=== PATIENT | female | born 1935 | race Caucasian/White ===

== ENCOUNTER 2021-11-05 16:58 | Observation (INO) | payer MEDICARE ==
[2021-11-05] VITALS (7 sets, daily range): BP systolic 132–170; BP diastolic 67–81
[~2021-11-05] VITALS: Ht 160 cm; Wt 63.2 kg
--- NOTE | 2021-11-05 17:00 | NUR ---
PATIENT TO ROOM AND STROKE ALERT CALLED
[2021-11-05 17:22] LABS: HEMATOCRIT 35.2 % (37.0-47.0); HEMOGLOBIN 10.8 g/dl (12.0-16.0); MEAN CELL VOLUME 89.3 fL CALC (80.0-100.0); MEAN CORPUSCULAR HGB 27.4 pG CALC (26.0-32.0); MEAN CORPUSCULAR HGB CONC 30.7 g/dL CAL (32.0-36.0); NEUT# 2.8 thou/uL (2.00-7.15); RED BLOOD COUNT 3.94 mill/uL (4.20-5.60); RED CELL DISTRI WIDTH 13.7 % (11.5-15.5)
--- NOTE | 2021-11-05 17:40 | NUR ---
PT RETURNED TO TOOM FROM CT NAD SNOTED. PATIENT HOOKED UP IN ROOM WITH MD AT BEDSIDE. DAUGHTER AT BED SIDE.
[2021-11-05 17:46] LABS: PROTHROMBIN TIME 10.3 SECONDS (9.0-12.5)
[2021-11-05 17:49] LABS: ALBUMIN 3.6 g/dL (3.2-5.0); ALKALINE PHOSPHATASE 109 u/l (38-126); ANION GAP 9 (6-22 (CALC)); BILIRUBIN, TOTAL 0.4 mg/dL (0.0-1.4); BUN 10 mg/dL (8-23); BUN/CREATININE RATIO 19 (12-20 (CALC)); CARBON DIOXIDE 27 mmol/l (22-30); CHLORIDE 98 mmol/l (95-108); CREATININE 0.5 mg/dL (0.5-1.0); GFR FOR AFR.AMER. > 60 ML/MIN (>=60 (CALC)); GFR OTHER RACES > 60 ML/MIN (>=60 (CALC)); POTASSIUM 4.3 mmol/l (3.5-5.1); SGOT/AST 16 u/l (9-36); SODIUM 129 mmol/l (137-146); TOTAL PROTEIN 6.6 g/dL (6.3-8.2)
[2021-11-05] MEDS ORDERED: METFORMIN500 M2 PO (17:58)
--- NOTE | 2021-11-05 18:00 | NUR ---
Reassessment of patient completed. No distress noted.
[2021-11-05] MEDS ORDERED: RYTARY 36.25-141 CAP PO ×2 (18:02→19:12)
--- NOTE | 2021-11-05 19:00 | NUR ---
Reassessment of patient completed. No distress noted.
[2021-11-05 19:17] LABS: URINE BILIRUBIN - DIPSTICK NEGATIVE (NEGATIVE); URINE BLOOD DIPSTICK NEGATIVE (NEGATIVE); URINE COLOR YELLOW; URINE GLUCOSE - DIPSTICK NEGATIVE (NEGATIVE); URINE KETONE NEGATIVE (NEGATIVE); URINE LEUK ESTERASE NEGATIVE (NEGATIVE); URINE PROTEIN - DIPSTICK NEGATIVE (NEG-TRACE); URINE UROBILINOGEN - DIPSTICK 0.2 E.U./dL (0.2)
[2021-11-05 19:22] LABS: URINE NITRITE - DIPSTICK POSITIVE (Negative)
[2021-11-05 19:30] LABS: URINE BACTERIA MANY hpf; URINE SQUAMOUS EPITHELIAL CELL MODERATE EPI/hpf (0-FEW)
--- NOTE | 2021-11-05 19:45 | NUR ---
PATIENT TRASFERED TO ROOM 280 MED SURG. REPORT GIVEN TO ZAIRA DEL RIO. PATIENT TRASFERED TO BED WITH SUPERVISION. NAD NOTED.
--- NOTE | 2021-11-05 20:30 | NUR ---
PATIENT ADMITTED FROM ER VIA STRETCHER WITH ER STAFF AND DAUGHTER IN ATTENDANCE. PATIENT IS ABLE TO TRANSFER TO BED WITH ASSIST AND USE OF HER WALKER. PATIENT ADMITTED FOR TIA. ALERT AND ORIENTEDX3. PATIENT SPEECH IS CLEAR AT THIS TIME. STATES THAT SHE DID HAVE SOME WORD FINDING DIFFICULTY EARLIER TODAY WELL SOME GARBLED SPEECH WHICH HAS RESOLVED. ROSALIE OF EXTREMITIES IS WNL. NO FACIAL DROOP NOTED. ABLE TO FOLLOW COMMANDS-HAND GRASPS ARE EQUAL AND STRONG. TELE MONITOR IN PLACE AND READING SR-60'S. IV SITE TO RAC INTACT AND HEALTHY WITH GOOD BLOOD RETURN. LUNGS ARE CLEAR. ABD IS SOFT WITH ACTIVE BS. LAST BM WAS YESTERDAY. BLE SWELLING NOTED-2+-STATES THAT THEY ARE ALWAYS LIKE THAT. ENCOURAGED ELEVATION.ASSISTED TO BR TO VOID-SLOW STEADY GAIT WITH ASSIST. VOIDING CLEAR YELLOW URINE. PATIENT DOES WEAR PAD FOR LEAKAGE. ASSISTED BACK TO BED. INSTRUCTED PATIENT ON USE OF NURSE CALL LIGHT AND TV REMOTE. SAFETY PRECAUTIONS REINFORCED. SCD'S APPLIED AND FEET ELEVATED ON PILLOWS. CALL LIGHT IN REACH. WILL CONT TO MONITOR.
[2021-11-06] VITALS: BP 132/67
--- NOTE | 2021-11-06 00:30 | NUR ---
RESTING IN BED-EYES ARE CLOSED. RESPS ARE EVEN AND UNLABORED. TELE MONITOR IN PLACE-SR-60'S. SALINE LOCK TO RAC INTACT. CALL LIGHT IN REACH. WILL CONT TO MONITOR.
[2021-11-06 04:00] VITALS: BP 138/66
--- NOTE | 2021-11-06 04:27 | NUR ---
PATIENT RESTING IN BED AT THIS TIME WITH EYES CLOSED. RESPS ARE EVEN AND UNLABORED. TELE MONITOR IN PLACE-SR-65. SALINE LOCK TO RAC INTACT. CALL LIGHT IN REACH. WILL CONT TO MONITOR.
[2021-11-06 04:38] VITALS: BP 138/66
[2021-11-06 05:49] LABS: ANION GAP 6 (6-22 (CALC)); BUN 10 mg/dL (8-23); BUN/CREATININE RATIO 21 (12-20 (CALC)); CARBON DIOXIDE 28 mmol/l (22-30); CHLORIDE 101 mmol/l (95-108); CREATININE 0.5 mg/dL (0.5-1.0); GFR FOR AFR.AMER. > 60 ML/MIN (>=60 (CALC)); GFR OTHER RACES > 60 ML/MIN (>=60 (CALC)); MAGNESIUM 1.5 mg/dL (1.6-2.3); SODIUM 130 mmol/l (137-146)
[2021-11-06 06:57] VITALS: BP 124/60
--- NOTE | 2021-11-06 08:15 | NUR ---
PT SITTING IN BED EATING BREAKFAST. A&O X3. NO DISTRESS NOTED. PT REPORTS TO FEELING WELL THIS MORNING. CLEAR SPEACH NOTED. NIH 0. CLEAR BREATH SOUNDS UPON AUSCULTATION. ACTIVE BOWEL SOUNDS X4. REPORTS URINATION FREQUENCY/URGENCY AT TIMES. BILATERAL LEG EDEMA; SCDS IN PLACE. PT REPORTS EDEMA HAS IMPROVED AFTER APPLICATION OF SCDS. IV HEALTHY AND PATENT. TELEMETRY MONITORING IN PLACE. ASSESSMENT COMPLETED. DISCUSSED POC. CALL LIGHT WITHIN REACH.
[2021-11-06 10:55] VITALS: BP 122/67
--- NOTE | 2021-11-06 11:29 | NUR ---
DR PEARCE AT BEDSIDE FOR ASSESSMENT AND DISCUSSION OF POC
[2021-11-06] MEDS ORDERED: ASPIRIN ADULT L81 M2 PO (12:09)
[2021-11-06] MEDS ORDERED: KEFLEX500 MG PO (12:11)
--- NOTE | 2021-11-06 12:56 | NUR ---
PT UPDATED ON D/C PLANNING ALONG WITH NEUROLOGY RECOMMENDATIONS. BOTH VERBALIZED UNDERSTANDING.
--- NOTE | 2021-11-06 14:50 | NUR ---
Discharge instructions given. Patient verbalizes understanding of same. Discharged in stable condition via Wheelchair to Home with staff. All belongings sent with pt.
== END 2021-11-06 14:50 | disposition home health service (06) ==
LOC: ED 16:58 → ED-I 17:46 → ED 18:11 → MS2 18:12
PROVIDERS: Family Medicine; ADMIT Internal Medicine; ATTEND Internal Medicine
DX: G45.9 Transient cerebral ischemic attack, unspecified (principal); N39.0 Urinary tract infection, site not specified; G20 Parkinson's disease; E11.9 Type 2 diabetes mellitus without complications; B96.20 Unspecified Escherichia coli [E. coli] as the cause of diseases classified elsewhere; Z79.84 Long term (current) use of oral hypoglycemic drugs; Z20.822 Contact with and (suspected) exposure to COVID-19
CPT/HCPCS: J3475; Q3014; Q9967

== ENCOUNTER 2022-06-27 09:31 | Observation (INO) | payer MEDICARE ==
[~2022-06-27] VITALS: Ht 160 cm; Wt 64.6 kg
[2022-06-27] VITALS (9 sets, daily range): BP systolic 107–159; BP diastolic 52–79
[~2022-06-27 09:31] MED LIST: ASPIRIN ADULT L81 M2 PO; KEFLEX500 MG PO; METFORMIN500 M2 PO; RYTARY 36.25-141 CAP PO
[2022-06-27 10:31] LABS: ALBUMIN 4.3 g/dL (3.2-5.0); ALKALINE PHOSPHATASE 99 u/l (38-126); ANION GAP 14 (6-22 (CALC)); BUN 17 mg/dL (8-23); BUN/CREATININE RATIO 41 (12-20 (CALC)); CARBON DIOXIDE 25 mmol/l (22-30); CHLORIDE 94 mmol/l (95-108); CREATININE 0.4 mg/dL (0.5-1.0); GFR FOR AFR.AMER. > 60 ML/MIN (>=60 (CALC)); GFR OTHER RACES > 60 ML/MIN (>=60 (CALC)); POTASSIUM 4.5 mmol/l (3.5-5.1); SODIUM 129 mmol/l (137-146); TOTAL PROTEIN 6.9 g/dL (6.3-8.2)
[2022-06-27 10:35] LABS: BASO% 0.3 % (0-3); HEMATOCRIT 38.8 % (37.0-47.0); HEMOGLOBIN 12.2 g/dl (12.0-16.0); IMMATURE GRANULOCYTES 0.7 % (0.0-5.0); LYMPH% 12.5 % (15-41); MEAN CELL VOLUME 87.2 fL CALC (80.0-100.0); MEAN CORPUSCULAR HGB 27.4 pG CALC (26.0-32.0); MEAN CORPUSCULAR HGB CONC 31.4 g/dL CAL (32.0-36.0); MONO% 10.6 % (2-13); NEUT# 5.14 thou/uL (2.00-7.15); NEUT% 74.9 % (42-76); RED BLOOD COUNT 4.45 mill/uL (4.20-5.60); RED CELL DISTRI WIDTH 14.1 % (11.5-15.5)
[2022-06-27 10:35] LABS: URINE BILIRUBIN - DIPSTICK NEGATIVE (NEGATIVE); URINE BLOOD DIPSTICK NEGATIVE (NEGATIVE); URINE COLOR YELLOW; URINE GLUCOSE - DIPSTICK NEGATIVE (NEGATIVE); URINE KETONE NEGATIVE (NEGATIVE); URINE LEUK ESTERASE NEGATIVE (NEGATIVE); URINE PH 6.5 (4.5-8.0); URINE PROTEIN - DIPSTICK NEGATIVE (NEG-TRACE); URINE UROBILINOGEN - DIPSTICK 0.2 E.U./dL (0.2)
[2022-06-27 10:37] LABS: URINE NITRITE - DIPSTICK POSITIVE (Negative)
[2022-06-27 10:39] LABS: URINE BACTERIA MANY hpf; URINE EPITHELIAL CELLS FEW EPI/hpf (0-FEW)
[2022-06-27 10:47] LABS: SGOT/AST 30 u/l (9-36)
[2022-06-27] MEDS ORDERED: METOPROL TAR25 M1 PO (12:22)
[2022-06-27] MEDS ORDERED: RYTARY (13:22)
[2022-06-27] MEDS ORDERED: RYTARY 36.25-141 CAP (13:25)
[2022-06-28 04:01] VITALS: BP 117/43
[2022-06-28 06:22] LABS: ALBUMIN 3.5 g/dL (3.2-5.0); ALKALINE PHOSPHATASE 76 u/l (38-126); ANION GAP 10 (6-22 (CALC)); BILIRUBIN, TOTAL 0.8 mg/dL (0.02-1.3); BUN 13 mg/dL (8-23); BUN/CREATININE RATIO 32 (12-20 (CALC)); CARBON DIOXIDE 26 mmol/l (22-30); CHLORIDE 96 mmol/l (95-108); CREATININE 0.4 mg/dL (0.5-1.0); GFR FOR AFR.AMER. > 60 ML/MIN (>=60 (CALC)); GFR OTHER RACES > 60 ML/MIN (>=60 (CALC)); POTASSIUM 4.3 mmol/l (3.5-5.1); SGOT/AST 25 u/l (9-36); SODIUM 128 mmol/l (137-146)
[2022-06-28 06:35] VITALS: BP 117/55
[2022-06-28 08:40] VITALS: BP 117/54
[2022-06-28 18:18] VITALS: BP 133/52
[2022-06-29] VITALS (7 sets, daily range): BP systolic 119–146; BP diastolic 56–68
[2022-06-29 06:25] LABS: HEMATOCRIT 36.5 % (37.0-47.0); HEMOGLOBIN 11.8 g/dl (12.0-16.0); MEAN CELL VOLUME 85.5 fL CALC (80.0-100.0); MEAN CORPUSCULAR HGB 27.6 pG CALC (26.0-32.0); MEAN CORPUSCULAR HGB CONC 32.3 g/dL CAL (32.0-36.0); RED BLOOD COUNT 4.27 mill/uL (4.20-5.60); RED CELL DISTRI WIDTH 14.2 % (11.5-15.5)
[2022-06-29 06:35] LABS: ALBUMIN 3.7 g/dL (3.2-5.0); ALKALINE PHOSPHATASE 87 u/l (38-126); ANION GAP 9 (6-22 (CALC)); BILIRUBIN, TOTAL 0.6 mg/dL (0.02-1.3); BUN 10 mg/dL (8-23); BUN/CREATININE RATIO 28 (12-20 (CALC)); CARBON DIOXIDE 28 mmol/l (22-30); CHLORIDE 95 mmol/l (95-108); CREATININE 0.4 mg/dL (0.5-1.0); GFR FOR AFR.AMER. > 60 ML/MIN (>=60 (CALC)); GFR OTHER RACES > 60 ML/MIN (>=60 (CALC)); MAGNESIUM 1.5 mg/dL (1.6-2.3); POTASSIUM 4.4 mmol/l (3.5-5.1); SGOT/AST 26 u/l (9-36); SODIUM 128 mmol/l (137-146); TOTAL PROTEIN 6.4 g/dL (6.3-8.2)
[2022-06-30 03:32] VITALS: BP 129/56
[2022-06-30 05:47] LABS: BASO% 0.6 % (0-3); EOS% 3.2 % (0-8); HEMATOCRIT 36.1 % (37.0-47.0); HEMOGLOBIN 11.7 g/dl (12.0-16.0); IMMATURE GRANULOCYTES 0.8 % (0.0-5.0); LYMPH% 13.6 % (15-41); MEAN CELL VOLUME 85.3 fL CALC (80.0-100.0); MEAN CORPUSCULAR HGB 27.7 pG CALC (26.0-32.0); MEAN CORPUSCULAR HGB CONC 32.4 g/dL CAL (32.0-36.0); MONO% 9.3 % (2-13); NEUT# 3.57 thou/uL (2.00-7.15); NEUT% 72.5 % (42-76); RED BLOOD COUNT 4.23 mill/uL (4.20-5.60)
[2022-06-30 05:55] LABS: ALBUMIN 3.5 g/dL (3.2-5.0); ALKALINE PHOSPHATASE 98 u/l (38-126); ANION GAP 11 (6-22 (CALC)); BILIRUBIN, TOTAL 0.6 mg/dL (0.02-1.3); BUN 12 mg/dL (8-23); BUN/CREATININE RATIO 33 (12-20 (CALC)); CARBON DIOXIDE 25 mmol/l (22-30); CHLORIDE 96 mmol/l (95-108); CREATININE 0.4 mg/dL (0.5-1.0); GFR FOR AFR.AMER. > 60 ML/MIN (>=60 (CALC)); GFR OTHER RACES > 60 ML/MIN (>=60 (CALC)); MAGNESIUM 1.3 mg/dL (1.6-2.3); POTASSIUM 4.6 mmol/l (3.5-5.1); SGOT/AST 22 u/l (9-36); SODIUM 127 mmol/l (137-146)
[2022-06-30 06:04] VITALS: BP 167/76
[2022-06-30 10:13] VITALS: BP 140/67
[2022-06-30] MEDS ORDERED: CIPROFLOXACN500 MG PO (12:26)
== END 2022-06-30 15:07 ==
LOC: EDPENDDISTM → EDPENDDISDT → ED 09:31 → ED-I 10:20 → ED 12:45 → MS2 12:46
PROVIDERS: Emergency Medicine; Nurse Practitioner Family; ADMIT Internal Medicine; ATTEND Internal Medicine
DX: N39.0 Urinary tract infection, site not specified (principal); E86.0 Dehydration; E87.1 Hypo-osmolality and hyponatremia; E11.9 Type 2 diabetes mellitus without complications; G20 Parkinson's disease; B95.7 Other staphylococcus as the cause of diseases classified elsewhere; Z91.81 History of falling; Z87.440 Personal history of urinary (tract) infections; Z79.84 Long term (current) use of oral hypoglycemic drugs; Z85.820 Personal history of malignant melanoma of skin; Z74.2 Need for assistance at home and no other household member able to render care; Z20.822 Contact with and (suspected) exposure to COVID-19
CPT/HCPCS: J3475

== ENCOUNTER 2022-09-06 21:19 | Emergency (ER) | payer MEDICARE ==
[~2022-09-06] VITALS: Ht 160 cm; Wt 81.8 kg
[~2022-09-06 21:19] MED LIST changes: +CIPROFLOXACN500 MG PO; +METOPROL TAR25 M1 PO; +RYTARY; +RYTARY 36.25-141 CAP
[2022-09-06 21:26] VITALS: BP 107/55
[2022-09-06 21:30] VITALS: BP 117/60
[2022-09-06] MEDS ORDERED: FEROSUL325 MG (21:41)
[2022-09-06] MEDS ORDERED: SOD CHLORIDE1 GM OD (21:42)
[2022-09-06] MEDS ORDERED: VITAMIN B-121000 MCG PO (21:43)
[2022-09-06] MEDS ORDERED: BISACODYL10 M1 RE (21:43)
[2022-09-06 22:00] LABS: BASO% 0.9 % (0-3); EOS% 4.7 % (0-8); HEMATOCRIT 34.8 % (37.0-47.0); HEMOGLOBIN 10.9 g/dl (12.0-16.0); IMMATURE GRANULOCYTES 0.5 % (0.0-5.0); LYMPH% 20.7 % (15-41); MEAN CORPUSCULAR HGB 27.9 pG CALC (26.0-32.0); MEAN CORPUSCULAR HGB CONC 31.3 g/dL CAL (32.0-36.0); MONO% 9.5 % (2-13); NEUT# 2.74 thou/uL (2.00-7.15); NEUT% 63.7 % (42-76); RED BLOOD COUNT 3.91 mill/uL (4.20-5.60); RED CELL DISTRI WIDTH 15.1 % (11.5-15.5)
[2022-09-06 22:15] LABS: ALBUMIN 3.8 g/dL (3.2-5.0); ALKALINE PHOSPHATASE 98 u/l (38-126); ANION GAP 10 (6-22 (CALC)); BILIRUBIN, TOTAL 0.4 mg/dL (0.02-1.3); BUN 12 mg/dL (8-23); BUN/CREATININE RATIO 22 (12-20 (CALC)); CARBON DIOXIDE 27 mmol/l (22-30); CHLORIDE 97 mmol/l (95-108); CREATININE 0.5 mg/dL (0.5-1.0); GFR FOR AFR.AMER. > 60 ML/MIN (>=60 (CALC)); GFR OTHER RACES > 60 ML/MIN (>=60 (CALC)); MAGNESIUM 1.4 mg/dL (1.6-2.3); POTASSIUM 4.1 mmol/l (3.5-5.1); SGOT/AST 22 u/l (9-36); SODIUM 130 mmol/l (137-146); TOTAL PROTEIN 6.5 g/dL (6.3-8.2)
[2022-09-07 01:49] LABS: URINE BILIRUBIN - DIPSTICK NEGATIVE (NEGATIVE); URINE BLOOD DIPSTICK NEGATIVE (NEGATIVE); URINE COLOR YELLOW; URINE GLUCOSE - DIPSTICK NEGATIVE (NEGATIVE); URINE KETONE TRACE mg/dL (NEGATIVE); URINE LEUK ESTERASE NEGATIVE (NEGATIVE); URINE NITRITE - DIPSTICK NEGATIVE (Negative); URINE PROTEIN - DIPSTICK NEGATIVE (NEG-TRACE); URINE SPECIFIC GRAVITY 1.025; URINE UROBILINOGEN - DIPSTICK 0.2 E.U./dL (0.2)
[2022-09-07] MEDS ORDERED: TRAMADOL HCL50 MG PO (01:57)
[2022-09-07 02:29] VITALS: BP 107/55
== END 2022-09-07 02:20 ==
LOC: ED 21:19
PROVIDERS: Family Medicine
DX: M80.88XA Other osteoporosis with current pathological fracture, vertebra(e), initial encounter for fracture (principal); G20 Parkinson's disease; E11.9 Type 2 diabetes mellitus without complications; Z79.84 Long term (current) use of oral hypoglycemic drugs; Z91.81 History of falling

== ENCOUNTER 2023-05-04 12:45 | Observation (INO) | payer MEDICARE ==
[~2023-05-04] VITALS: Ht 160 cm; Wt 61.4 kg
[2023-05-04] VITALS (20 sets, daily range): BP systolic 104–187; BP diastolic 39–126
[~2023-05-04 12:45] MED LIST changes: +BISACODYL10 M1 RE; +CEFDINIR300 MG PO; +FEROSUL325 MG; +PLAVIX75 MG PO; -RYTARY; -RYTARY 36.25-141 CAP; +RYTARY PO; +SOD CHLORIDE1 GM PO; +TRAMADOL HCL50 MG PO; +VITAMIN B-121000 MCG PO; +VITAMIN D320 MCG PO
[2023-05-04 13:17] LABS: BASO% 0.7 % (0-3); HEMATOCRIT 35.4 % (37.0-47.0); HEMOGLOBIN 11.4 g/dl (12.0-16.0); IMMATURE GRANULOCYTES 0.7 % (0.0-5.0); LYMPH% 27.2 % (15-41); MEAN CELL VOLUME 91.5 fL CALC (80.0-100.0); MEAN CORPUSCULAR HGB 29.5 pG CALC (26.0-32.0); MEAN CORPUSCULAR HGB CONC 32.2 g/dL CAL (32.0-36.0); MONO% 8.1 % (2-13); NEUT# 2.48 thou/uL (2.00-7.15); NEUT% 61.3 % (42-76); RED BLOOD COUNT 3.87 mill/uL (4.20-5.60)
[2023-05-04 13:30] LABS: ALKALINE PHOSPHATASE 73 u/l (38-126); ANION GAP 9 (6-22 (CALC)); BILIRUBIN, TOTAL 0.6 mg/dL (0.02-1.3); BUN 12 mg/dL (8-23); BUN/CREATININE RATIO 25 (12-20 (CALC)); CARBON DIOXIDE 26 mmol/l (22-30); CHLORIDE 96 mmol/l (95-108); CREATININE 0.5 mg/dL (0.5-1.0); GFR FOR AFR.AMER. > 60 ML/MIN (>=60 (CALC)); GFR OTHER RACES > 60 ML/MIN (>=60 (CALC)); SGOT/AST 24 u/l (9-36); SODIUM 127 mmol/l (137-146); TOTAL PROTEIN 6.4 g/dL (6.3-8.2)
[2023-05-04 14:57] LABS: URINE BILIRUBIN - DIPSTICK Negative (NEGATIVE); URINE BLOOD DIPSTICK Negative (NEGATIVE); URINE COLOR Yellow; URINE GLUCOSE - DIPSTICK Negative (NEGATIVE); URINE KETONE Trace mg/dL (NEGATIVE); URINE LEUK ESTERASE Negative (NEGATIVE); URINE NITRITE - DIPSTICK Negative (Negative); URINE PROTEIN - DIPSTICK Negative (NEG-TRACE); URINE SPECIFIC GRAVITY 1.015; URINE UROBILINOGEN - DIPSTICK 0.2 E.U./dL (0.2)
[2023-05-05] VITALS (7 sets, daily range): BP systolic 99–144; BP diastolic 58–92
[2023-05-05 05:25] LABS: BASO% 0.7 % (0-3); EOS% 1.7 % (0-8); HEMATOCRIT 36.2 % (37.0-47.0); IMMATURE GRANULOCYTES 0.5 % (0.0-5.0); LYMPH% 22.6 % (15-41); MEAN CELL VOLUME 89.4 fL CALC (80.0-100.0); MEAN CORPUSCULAR HGB 29.6 pG CALC (26.0-32.0); MEAN CORPUSCULAR HGB CONC 33.1 g/dL CAL (32.0-36.0); MONO% 8.4 % (2-13); NEUT# 2.69 thou/uL (2.00-7.15); NEUT% 66.1 % (42-76); RED BLOOD COUNT 4.05 mill/uL (4.20-5.60); RED CELL DISTRI WIDTH 14.9 % (11.5-15.5)
[2023-05-05 05:31] LABS: ALBUMIN 3.8 g/dL (3.2-5.0); ALKALINE PHOSPHATASE 77 u/l (38-126); ANION GAP 6 (6-22 (CALC)); BILIRUBIN, TOTAL 0.7 mg/dL (0.02-1.3); BUN 10 mg/dL (8-23); BUN/CREATININE RATIO 21 (12-20 (CALC)); CALCULATED LDLCHOLESTEROL 97 mg/dL (62-129 (CALC)); CHLORIDE 95 mmol/l (95-108); CHOLESTEROL HDL RATIO 2.5 (<4.4 (CALC)); CREATININE 0.5 mg/dL (0.5-1.0); GFR FOR AFR.AMER. > 60 ML/MIN (>=60 (CALC)); GFR OTHER RACES > 60 ML/MIN (>=60 (CALC)); HDL CHOLESTEROL 89 mg/dL (39.0-59.0); SGOT/AST 28 u/l (9-36); SODIUM 130 mmol/l (137-146); TOTAL CHOLESTEROL 218 mg/dl (0-199); TOTAL PROTEIN 6.1 g/dL (6.3-8.2); TOTAL TRIGLYCERIDES 166 mg/dl (0-149); VLDL CHOLESTROL 33 mg/dl (0-48 (CALC))
[2023-05-05 05:32] LABS: CARBON DIOXIDE 33 mmol/l (22-30)
[2023-05-06 04:22] VITALS: BP 116/58
[2023-05-06 07:04] LABS: BASO% 0.8 % (0-3); EOS% 3.6 % (0-8); HEMATOCRIT 34.4 % (37.0-47.0); HEMOGLOBIN 11.3 g/dl (12.0-16.0); IMMATURE GRANULOCYTES 0.5 % (0.0-5.0); LYMPH% 29.6 % (15-41); MEAN CELL VOLUME 89.6 fL CALC (80.0-100.0); MEAN CORPUSCULAR HGB 29.4 pG CALC (26.0-32.0); MEAN CORPUSCULAR HGB CONC 32.8 g/dL CAL (32.0-36.0); MONO% 10.7 % (2-13); NEUT# 2.15 thou/uL (2.00-7.15); NEUT% 54.8 % (42-76); RED BLOOD COUNT 3.84 mill/uL (4.20-5.60); RED CELL DISTRI WIDTH 15.1 % (11.5-15.5)
[2023-05-06 07:10] LABS: ALBUMIN 3.5 g/dL (3.2-5.0); ALKALINE PHOSPHATASE 64 u/l (38-126); ANION GAP 6 (6-22 (CALC)); BILIRUBIN, TOTAL 0.7 mg/dL (0.02-1.3); BUN 14 mg/dL (8-23); BUN/CREATININE RATIO 30 (12-20 (CALC)); CARBON DIOXIDE 31 mmol/l (22-30); CHLORIDE 95 mmol/l (95-108); CREATININE 0.5 mg/dL (0.5-1.0); GFR FOR AFR.AMER. > 60 ML/MIN (>=60 (CALC)); GFR OTHER RACES > 60 ML/MIN (>=60 (CALC)); MAGNESIUM 1.3 mg/dL (1.6-2.3); POTASSIUM 4.1 mmol/l (3.5-5.1); SGOT/AST 25 u/l (9-36); SODIUM 128 mmol/l (137-146); TOTAL PROTEIN 5.8 g/dL (6.3-8.2)
[2023-05-06 07:22] VITALS: BP 134/63
[2023-05-06 10:31] VITALS: BP 93/39
[2023-05-06 15:05] VITALS: BP 112/45
[2023-05-06 20:53] VITALS: BP 112/72
[2023-05-07 00:22] VITALS: BP 115/67
[2023-05-07 00:41] VITALS: BP 115/67
[2023-05-07 04:26] VITALS: BP 117/53
[2023-05-07 06:23] LABS: BASO% 0.7 % (0-3); HEMATOCRIT 37.6 % (37.0-47.0); HEMOGLOBIN 12.1 g/dl (12.0-16.0); IMMATURE GRANULOCYTES 0.5 % (0.0-5.0); LYMPH% 19.5 % (15-41); MEAN CELL VOLUME 90.4 fL CALC (80.0-100.0); MEAN CORPUSCULAR HGB 29.1 pG CALC (26.0-32.0); MEAN CORPUSCULAR HGB CONC 32.2 g/dL CAL (32.0-36.0); MONO% 7.3 % (2-13); NEUT# 3.08 thou/uL (2.00-7.15); RED BLOOD COUNT 4.16 mill/uL (4.20-5.60)
[2023-05-07 06:25] VITALS: BP 139/60
[2023-05-07 06:38] LABS: ALBUMIN 3.8 g/dL (3.2-5.0); ALKALINE PHOSPHATASE 78 u/l (38-126); ANION GAP 10 (6-22 (CALC)); BILIRUBIN, TOTAL 0.7 mg/dL (0.02-1.3); BUN 12 mg/dL (8-23); BUN/CREATININE RATIO 31 (12-20 (CALC)); CARBON DIOXIDE 26 mmol/l (22-30); CHLORIDE 100 mmol/l (95-108); CREATININE 0.4 mg/dL (0.5-1.0); GFR FOR AFR.AMER. > 60 ML/MIN (>=60 (CALC)); GFR OTHER RACES > 60 ML/MIN (>=60 (CALC)); MAGNESIUM 1.6 mg/dL (1.6-2.3); POTASSIUM 4.4 mmol/l (3.5-5.1); SGOT/AST 24 u/l (9-36); SODIUM 132 mmol/l (137-146); TOTAL PROTEIN 6.3 g/dL (6.3-8.2)
[2023-05-07] MEDS ORDERED: ACETAMINOPHEN500 M1 PO (10:54)
[2023-05-07 10:57] VITALS: BP 104/52; BP 119/41
[2023-05-07] MEDS ORDERED: HYDROCHLOROT25 MG PO (10:58)
[2023-05-07] MEDS ORDERED: SOD CHLORIDE1 GM PO (11:06)
== END 2023-05-07 11:45 ==
LOC: ED 12:45 → ED-I 15:55 → ED 16:50 → MS2 16:51
PROVIDERS: Nurse Practitioner; Student in an Organized Health Care Education/Training Program; ADMIT Student in an Organized Health Care Education/Training Program; ATTEND Student in an Organized Health Care Education/Training Program
DX: E87.1 Hypo-osmolality and hyponatremia (principal); G20.A2 Parkinson's disease without dyskinesia, with fluctuations; F02.80 Dementia in other diseases classified elsewhere, unspecified severity, without behavioral disturbance, psychotic disturbance, mood disturbance, and anxiety; E11.9 Type 2 diabetes mellitus without complications; D64.9 Anemia, unspecified; Z79.84 Long term (current) use of oral hypoglycemic drugs
CPT/HCPCS: J1650; J3475

== ENCOUNTER 2023-06-01 07:37 | Observation (INO) | payer MEDICARE ==
[2023-06-01] VITALS (41 sets, daily range): BP systolic 93–158; BP diastolic 47–101
[~2023-06-01] VITALS: Ht 160 cm; Wt 60.6 kg
[~2023-06-01 07:37] MED LIST changes: +ACETAMINOPHEN500 M1 PO; +HYDROCHLOROT25 MG PO
--- NOTE | 2023-06-01 07:37 | NUR ---
pt to room via ems, pt combative at this time, unable to get vitals or ekg will medicate and try again
[2023-06-01] MEDS ORDERED: DiphenhydrAMINE HCL 50 MG/ML SDV IM ONE (07:45)
[2023-06-01] MEDS ORDERED: HALOPERIDOL LACTATE 5 MG/ML SDV IM ONE (07:45)
--- NOTE | 2023-06-01 08:37 | NUR ---
pt sedated, vitals and iv complete. pt calm
[2023-06-01] MEDS ORDERED: SODIUM CHLORIDE 0.9% 1,000 ML IV ONE (08:45)
[2023-06-01 09:06] LABS: INTERNATIONAL NORMALIZED RATIO 1.1 RATIO (0.7-1.3); PROTHROMBIN TIME 10.5 SECONDS (9.0-12.5)
[2023-06-01 09:08] LABS: BASO% 0.4 % (0-3); EOS% 1.9 % (0-8); HEMATOCRIT 33.7 % (37.0-47.0); HEMOGLOBIN 11.1 g/dl (12.0-16.0); IMMATURE GRANULOCYTES 0.6 % (0.0-5.0); MEAN CELL VOLUME 92.6 fL CALC (80.0-100.0); MEAN CORPUSCULAR HGB 30.5 pG CALC (26.0-32.0); MEAN CORPUSCULAR HGB CONC 32.9 g/dL CAL (32.0-36.0); NEUT# 4.1 thou/uL (2.00-7.15); NEUT% 78.1 % (42-76); RED BLOOD COUNT 3.64 mill/uL (4.20-5.60); RED CELL DISTRI WIDTH 14.4 % (11.5-15.5)
[2023-06-01 09:12] LABS: ALBUMIN 4.1 g/dL (3.2-5.0); ALKALINE PHOSPHATASE 84 u/l (38-126); BILIRUBIN, TOTAL 0.7 mg/dL (0.02-1.3); CARBON DIOXIDE 28 mmol/l (22-30); CHLORIDE 98 mmol/l (95-108); SGOT/AST 29 u/l (9-36); SODIUM 130 mmol/l (137-146); TOTAL PROTEIN 6.8 g/dL (6.3-8.2)
[2023-06-01 09:16] LABS: ANION GAP 8 (6-22 (CALC)); BUN 12 mg/dL (8-23); BUN/CREATININE RATIO 26 (12-20 (CALC)); CREATININE 0.5 mg/dL (0.5-1.0); GFR FOR AFR.AMER. > 60 ML/MIN (>=60 (CALC)); GFR OTHER RACES > 60 ML/MIN (>=60 (CALC)); POTASSIUM 3.5 mmol/l (3.5-5.1)
--- NOTE | 2023-06-01 09:37 | NUR ---
pt appears to be resting comfortably, no apparent distress, daughter bedside
[2023-06-01 09:55] LABS: URINE BILIRUBIN - DIPSTICK Negative (NEGATIVE); URINE BLOOD DIPSTICK Negative (NEGATIVE); URINE GLUCOSE - DIPSTICK Negative (NEGATIVE); URINE KETONE Negative (NEGATIVE); URINE LEUK ESTERASE Negative (NEGATIVE); URINE NITRITE - DIPSTICK Negative (Negative); URINE PROTEIN - DIPSTICK Negative (NEG-TRACE); URINE SPECIFIC GRAVITY 1.015; URINE UROBILINOGEN - DIPSTICK 0.2 E.U./dL (0.2)
[2023-06-01 09:56] LABS: URINE COLOR Straw
--- NOTE | 2023-06-01 10:37 | NUR ---
pt daughter in room awaiting results, pt appears to be resting comfortably, vitals stable
--- NOTE | 2023-06-01 11:32 | NUR ---
pt to be admitted, pt still sleeping vitals stable, daughter aware of admission
[2023-06-01] MEDS ORDERED: SODIUM CHLORIDE 0.9% 1,000 ML IV PRN (11:50)
[2023-06-01] MEDS ORDERED: MAGNESIUM HYDROXIDE 30 ML UDC PO PRN (11:50)
[2023-06-01] MEDS ORDERED: ACETAMINOPHEN 325 MG/TAB PO PRN (11:50)
--- NOTE | 2023-06-01 12:30 | NUR ---
pt arrousable, daughter bedside, pt calm, does not wish to eat right now
--- NOTE | 2023-06-01 13:30 | NUR ---
pt still sleeping with sedation, vitals stable, daughter in room
--- NOTE | 2023-06-01 14:30 | NUR ---
pt eating her lunch with daughter
--- NOTE | 2023-06-01 15:30 | NUR ---
pt resting comfortably waiting for a admission bed
[2023-06-01] MEDS ORDERED: CLOPIDOGREL BISULFATE 75 MG/TAB TAB PO SCH (16:00)
[2023-06-01] MEDS ORDERED: SODIUM CHLORIDE 1 GM/TAB TAB PO SCH (16:00)
[2023-06-01] MEDS ORDERED: FUROSEMIDE 40 MG/4 ML SDV IV SCH (16:00)
[2023-06-01] MEDS ORDERED: ANUSOL-HC25 MG RE (16:10)
--- NOTE | 2023-06-01 16:37 | NUR ---
new iv placed, iv infiltrated.
[2023-06-01] MEDS ORDERED: RYTARY PO SCH ×2 (17:00)
--- NOTE | 2023-06-01 18:47 | NUR ---
family does not have pt home meds here, will bring
--- NOTE | 2023-06-01 20:30 | NUR ---
REPORT GIVEN TO NURSE JESSICA ON MED SURGE. PT IS GOING TO ROOM 261 ON TELE # 13
[2023-06-01] MEDS ORDERED: ENOXAPARIN SODIUM 40 MG/0.4 ML SYR SC SCH (21:00)
[2023-06-01] MEDS ORDERED: METOPROLOL TARTRATE 25 MG/TAB PO SCH (21:00)
--- NOTE | 2023-06-02 | NUR ---
RECEIVED REPORT FROM ED NURSE TRANSPORTED VIA BED, PATIENT IS NON AMBULATORY PER FAMILY MEMBER USES WHEELCHAIR, ARRIVED ON MS UNIT AT 2053, ALERT ORTINTED TO NAME AND PLACE AND TIME, IV ON RFA G 22 SALINE LOCK PATENT FLUSHES WELL, ON TELEMETRY # 13, UNABLE TO RECALL BM, FAMILY BROUGHT HOME MEDS RYTARY PLACED IN MED ROOM FOR PHARMACY VERIFICATION.
--- NOTE | 2023-06-02 04:00 | NUR ---
PATIENT RESTING IN BED, NOT IN DISTRESS, BREATHING EVEN UNLABORED CALL LIGHT IN REACH, BED ALARM IN PLACED.
[2023-06-02 04:38] VITALS: BP 144/60
[2023-06-02 05:22] LABS: BASO% 0.7 % (0-3); HEMOGLOBIN 10.7 g/dl (12.0-16.0); IMMATURE GRANULOCYTES 0.5 % (0.0-5.0); LYMPH% 18.5 % (15-41); MEAN CELL VOLUME 92.7 fL CALC (80.0-100.0); MEAN CORPUSCULAR HGB 30.1 pG CALC (26.0-32.0); MEAN CORPUSCULAR HGB CONC 32.4 g/dL CAL (32.0-36.0); MONO% 10.3 % (2-13); NEUT# 2.94 thou/uL (2.00-7.15); RED BLOOD COUNT 3.56 mill/uL (4.20-5.60); RED CELL DISTRI WIDTH 14.6 % (11.5-15.5)
[2023-06-02 05:43] LABS: ANION GAP 8 (6-22 (CALC)); BUN 15 mg/dL (8-23); BUN/CREATININE RATIO 30 (12-20 (CALC)); CARBON DIOXIDE 28 mmol/l (22-30); CHLORIDE 102 mmol/l (95-108); CREATININE 0.5 mg/dL (0.5-1.0); GFR FOR AFR.AMER. > 60 ML/MIN (>=60 (CALC)); GFR OTHER RACES > 60 ML/MIN (>=60 (CALC)); MAGNESIUM 1.4 mg/dL (1.6-2.3); POTASSIUM 3.9 mmol/l (3.5-5.1); SODIUM 134 mmol/l (137-146)
[2023-06-02 06:52] VITALS: BP 117/53
--- NOTE | 2023-06-02 06:55 | NUR ---
REPORT RECEIVED FROM ZAIRA IGNACIO
[2023-06-02 08:05] VITALS: BP 142/65
--- NOTE | 2023-06-02 08:15 | NUR ---
PT RESTING AT BEDSIDE EATING BREAKFAST, A&O X3;PT DENIES ANY CURRENT PAIN OR DISCOMFORTS,PAIN SCALE AND REPORTING EDUCATED;ASSESSMENT COMPLETED;RESPIRATIONS EVEN AND UNLABORED ON RA;TELE MONITORING IN PLACE;PUREWICK CATHETER NOTED DRAINING WITH EASE;IV FLUSHED AND PATENT,SITE APPEARS HEALTHY;COFFEE PROVIDED PER REQUEST;PT ENCOURAGED TO CALL FOR ASSISTANCE IF NEEDED;FALL PRECAUTIONNS IN PLACE WITH BED IN THE LOWEST POSIITON AND BED ALARM ON FOR SAFETY;CALL LIGHT IN REACH;FREQUENT ROUNDS MADE.
[2023-06-02 10:56] VITALS: BP 137/74
--- NOTE | 2023-06-02 11:20 | NUR ---
PT RESTING IN SEMI FOWLERS POSITION READING A MAGAZINE;RESPIRATIONS EVEN AND UNLABORED ON RA;PT DENIES ANY CURRENT PAIN OR NEEDS;IV SITE PATENT;TELE MONITORING IN PLACE;ACCUCHECK 131;PT ENCOURAGED TO CALL FOR ASSISTANCE IF NEEDED;FALL PRECAUTIONS REMAIN IN PLACE WITH BED ALARM ON FOR SAFETY AND CALL LIGHT IN REACH;FREQUENT ROUNDS MADE.
[2023-06-02] MEDS ORDERED: PATIENT' OWN MED 1 EA DOSE PO SCH ×2 (12:00)
--- NOTE | 2023-06-02 13:25 | NUR ---
ALL DISCHARGE INSTRUCTIONS PROVIDED AT THIS TIME. RX X2 PROVIDED TO PT DAUGHTER FOR D/C BACK TO [facility].HOME MEDICATONS ALSO PROVIDED;PT ENCOURAGED TO F/U WITH PCP IN THE NEXT 7 DAYS, TAKE ABX DIRECTED, AND CONTINUE TO TAKE LASIX.PT AND DAUGHTER DENIES ANY ADDITIONAL QUESTIONS OR NEEDS.IV SITE REMOVED WITH CATHETER INTACT AND TELE MONITORING REMOVED;WC TO BE PROVIDED FOR D/C. DAUGHTER TO TRANSPORT PT BACK TO [facility].
--- NOTE | 2023-06-02 13:57 | NUR ---
KRISTY KAHN AT BEDSIDE DISCUSSING POC
[2023-06-02] MEDS ORDERED: OMNICEF300 M1 PO (14:33)
[2023-06-02] MEDS ORDERED: LASIX 20 MG TAB20 MG PO (14:34)
[2023-06-02] MEDS ORDERED: MAGNESIUM OXIDE 400 MG/TAB PO SCH (15:00)
[2023-06-02] MEDS ORDERED: SOD CHLORIDE1 GM PO (15:39)
[2023-06-02] MEDS ORDERED: MAGNESIUM-OXID400 MG PO (15:39)
--- NOTE | 2023-06-02 15:40 | NUR ---
Discharge instructions given. Patient verbalizes understanding of same. Discharged in stable condition via Wheelchair to [facility] with family. All belongings sent with pt. PT TRANSPORTED TO [facility] IN STABLE CONDITION VIA [employer] [facility]. ALL PERSONAL BELONGINGS LEFT WITH PT. DAUGHTER TO TRANSPORT PT BACK TO [facility].
== END 2023-06-02 15:40 ==
LOC: ED 07:37 → MS2 11:13
PROVIDERS: Emergency Medicine; ADMIT Student in an Organized Health Care Education/Training Program; ATTEND Student in an Organized Health Care Education/Training Program
DX: R41.82 Altered mental status, unspecified (principal); E87.1 Hypo-osmolality and hyponatremia; L03.116 Cellulitis of left lower limb; G20.A1 Parkinson's disease without dyskinesia, without mention of fluctuations; I10 Essential (primary) hypertension; E11.51 Type 2 diabetes mellitus with diabetic peripheral angiopathy without gangrene; I25.10 Atherosclerotic heart disease of native coronary artery without angina pectoris; E78.5 Hyperlipidemia, unspecified; T50.2X6A Underdosing of carbonic-anhydrase inhibitors, benzothiadiazides and other diuretics, initial encounter; Z95.820 Peripheral vascular angioplasty status with implants and grafts; Z79.02 Long term (current) use of antithrombotics/antiplatelets; Z91.A3 Caregiver's unintentional underdosing of patient's medication regimen
CPT/HCPCS: J0690; J1650